=== PATIENT | female | born 1980 | race Caucasian/White ===

== ENCOUNTER → 2022-09-23 12:43 | Outpatient (REF) | payer BC, SELFPAY ==
--- NOTE | 2022-09-23 12:58 | CA_ITS ---
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 The calculated ejection fraction is 62% by biplane method. - No obvious valvular pathology seen on this study. Findings Left Ventricle Normal left ventricular cavity size. There is normal left ventricular wall thickness. The left ventricular systolic function is normal. The calculated ejection fraction is 62% by biplane method. There is no evidence of regional wall motion abnormalities. Diastolic function is normal for age. LV peak GLS -20.6% (normal). Right Ventricle Normal right ventricular cavity size and systolic function. Atria Both atria are normal in size. Aortic Valve There is no aortic valve stenosis. There is no aortic valve regurgitation. Likely trileaflet valve. Mitral Valve The mitral valve appears normal. There is trace mitral valve regurgitation. There is no mitral valve stenosis. Pulmonic Valve The pulmonic valve is likely normal. Tricuspid Valve There is no tricuspid valve regurgitation. Tricuspid regurgitation envelope is inadequate for calculation of right ventricular systolic pressure. Great Vessels The asc aorta is normal in size. Venous The inferior vena cava is normal in size and collapses greater than 50% with inspiration. Pericardium/Pleural There is no evidence of pericardial effusion. Prior Study Comparison No prior study available for comparison. Recommendations, Care & Conclusions No obvious valvular pathology seen on this study. Measurements 2D Linear Measurements IVSd: 0.71 0.6-0.9/0.6-1.0 cm LVIDd: 5.22 3.9-5.3/4.2-5.9 cm LVIDd Index: 3.03 2.4-3.2/2.2-3.1 cm/m2 LVIDs: 3.60 2.0-3.6 cm LVPWd: 0.75 0.7-1.1 cm LA Diam: 3.10 2.7-3.8/3.0-4.0 cm LAIDs Index: 1.80 1.5-2.3 cm/m2 LV Mass: 162.63 67-162/88-224 g LV Mass Index: 94.55 43-95/49-115 g/m2 LVOT Diam: 2.20 3.0+(-)1.3 cm 2D Systolic Function EF 4C: 60.40 >55% EF 2C: 64.30 >55% EF BiP: 62.00 >55% Mitral Valve MV Pk E: 0.97 MV PK A: 0.73 MV Decel Time: 181.00 E/A: 1.30 E'Lateral: 12.30 E'Medial: 7.51 E/E' Med: 12.90 E/E' Lat: 7.90 PHT: 53.00 MVA PHT: 4.15 Decel Roosevelt: 5.35 Aortic Valve AoV Pk Valentin: 1.34 AoV Pk Grad: 7.00 ANDERSON: 2.80 LVOT LVOT Pk Valentin: 0.99 LVOT Mn Valentin: 0.67 LVOT VTI: 0.19 LVOT Pk Grad: 4.00 LVOT Mn Grad: 2.00 LVOT Diam: 2.20 LVOT Area: 3.80 Diastolic Function MV Pk E: 0.97 MV Pk A: 0.73 E/A: 1.30 E'Medial: 7.51 E/E' Med: 12.90 E' Laterial: 12.30 E/E' Lat: 7.90 Right Ventricle TAPSE (mm): 25.40 TVS' Valentin: 14.30 Tricuspid Valve RA Press: 3.00 Great Vessels Aorta Sinus of Valsalva: 2.90 2.0-3.5 cm Ao Asc: 3.20 2.1-3.4 cm Ao Arch: 2.60 Ao Desc: 1.40 Pulmonary Veins Pulm Vein S/D 1.30 Pulmonary Valve PV Pk Valentin: 0.95 Peak PV Grad: 4.00 Updated in Other Vendor System with Status of Final Aleksandr Bello MD electronically signed on 09/23/2022 4:42:23 PM with status of Final
== END ==
LOC: HO.CARD 12:43
PROVIDERS: PCP Student in an Organized Health Care Education/Training Program; Visit Provider Student in an Organized Health Care Education/Training Program
DX: I10 Essential (primary) hypertension (principal)
CPT/HCPCS: 93306; 93356